=== PATIENT | male | born 1965 | race Asian ===

== ENCOUNTER 2017-11-17 08:38 | Emergency (ER) | payer BC ==
[~2017-11-17] VITALS: Ht 177.8 cm; Wt 81.6 kg
[2017-11-17 08:47] VITALS: Ht 177.8 cm; Wt 81.6 kg
[2017-11-17 09:50] VITALS: BP 141/99
== END 2017-11-17 09:55 | disposition home or self-care (01) ==
LOC: ED 08:38
DX: S01.01XA Laceration without foreign body of scalp, initial encounter (principal); I10 Essential (primary) hypertension; Y93.39 Activity, other involving climbing, rappelling and jumping off; Y93.89 Activity, other specified; Y92.89 Other specified places as the place of occurrence of the external cause; Y99.8 Other external cause status